=== PATIENT | female | born 1970 | race Caucasian/White ===

== ENCOUNTER 2018-12-27 06:26 | Day surgery (SDC) | payer MEDICARE, MEDICAID, SELFPAY ==
[2018-12-10 11:01] VITALS: BMI 36.6
[2018-12-27] VITALS (13 sets, daily range): BP systolic 78–108; BP diastolic 47–70; PULSE 58–67; RESP 12–16; TEMP 36.2–36.8; O2SAT 97–100; BMI 35.9
--- NOTE | 2018-12-27 | PATH_ITS ---
[facility] Accession Number: [id number] . 01 Material submitted: . uterus - UTERUS AND BILATERAL TUBES . 02 Diagnosis: Uterus And Bilateral Tubes, Hysterectomy, Bilateral Salpingectomy: 1. Benign leiomyomas. 2. Inactive endometrium with focal features suggestive of glandular and stromal breakdown. 3. Fallopian tubes with active inflammation and endosalpingiosis. 4. No evidence of atypia, epithelial dysplasia or malignancy. . I/12/29/2018 . 02 Electronically signed: . Jeanette Palacios MD, Pathologist NPI- [id number] . 01 Gross description: . Received in formalin, labeled uterus and denise tubes, is a uterus in multiple pieces (119 grams, 13.2 x 9.5 x 3.8 cm in aggregate) and two fimbriated fallopian tubes (tube #1: length-5.7 cm, diameter-0.7 cm; tube #2: length-5.2 cm, diameter-0.8 cm). The cervix and ovaries are absent. The specimen cannot be oriented and the endometrium and myometrium cannot be grossly measured. The parenchyma is quiroga and contains multiple solid firm white whorled well-circumscribed homogenous nodules (0.2 x 0.2 x 0.1 cm - 2.7 x 2.4 x 2.4 cm). The serosa is pale quiroga smooth and shiny. The fallopian tubes are surgically bisected and have pale to dark maroon serosa and quiroga dilated lumens containing red-brown watery fluid. Section code: (A1-A4) uterine parenchyma, personal service representative; (A5) fallopian tube #1, personal service representative serial section; (A6) fimbria #1, bivalved, entirely submitted; (A7) fallopian tube #2, personal service representative serial section; (A8) fimbria #2, bivalved, entirely submitted. ([id number]) /[facility] . 02 Pathologist provided ICD-10: D25.9 . 02 CPT . 986975 Performed at: 01 [facility] [address] [id number] MD Obie Gardiner MD Phone: [phone] Performed at: [id number] [place], [place] [id number] MD Jeanette Palacios MD Phone: [phone]
--- NOTE | 2018-12-27 07:17 | PM.PREOP ---
Pre-operative Note Interval Note History & Physical reviewed/Exam performed by Physician: Yes Changes to H&P: No
[2018-12-27] MEDS: LACTATED RINGERS 1,000 ML 100 ML IV ×2 (07:35→11:00)
[2018-12-27] MEDS: CEFAZOLIN 2 GM/100 ML FROZ.PIGGY IV (07:42)
--- NOTE | 2018-12-27 08:23 | SUR.OPER ---
Lithotomy on padded OR bed. [place] Pad Positioner under torso. Head on pillow, arms padded and tucked at sides. Legs secured in padded yellow fins stirrups.
[2018-12-27] MEDS: BUPIVACAINE 0.5% W/ EPI (PF) VIAL 30 ML INJ (08:35)
[2018-12-27] MEDS: ROPIVACAINE 0.2% PF 2 MG/ML 10ML AMP 10 ML INJ (08:37)
[2018-12-27] MEDS: fentaNYL 100 MCG/2 ML INJ 50 MCG IV ×2 (09:52→10:02)
[2018-12-27] MEDS: HYDROCODONE/ACET 5/325 TABLET 1 TAB PO ×2 (10:11→10:39)
--- NOTE | 2018-12-27 10:47 | SUR.PHASEII ---
Assumed care from Emily, og pad scant drop of blood, initially stated cramping pain tolerable, then asked for additional pain med. Medicated by Emily, see MAR.
--- NOTE | 2018-12-27 11:16 | SUR.PHASEII ---
BP low, Drs. Tyler and Jm made aware, pt asymtomatic, hr steady and in th2 60's. Belly is soft and og pad is unchanged from previous check. Friend, sent to pharmacy with prescription.
--- NOTE | 2018-12-27 12:11 | SUR.PHASEII ---
Pt up to BR, steady when up, voided minimal yellow urine, Dr. Tyler aware, bladder scanned for 132mls. Juice water brought to bedside.
--- NOTE | 2018-12-27 12:21 | SUR.PHASEII ---
Ambulated to bathroom x2; first time voided scant amount of clear yellow urine; just voided 400 ml clear yellow urine. Stable on feet, anxious to go home.
--- NOTE | 2018-12-27 12:47 | SUR.PHASEII ---
Pt ready to go, visited BR voided 400 mls. Dressed, small amount bloody drainage to umbilicus area, left when ready and left in stable condition. Per pad with unchanged drainage.
--- NOTE | 2018-12-27 21:03 | PM.GYNOP.1 ---
Operative Date/Time/Diagnoses Date of procedure: 12/27/18 Time of procedure: 21:03 Pre-op diagnosis: Enlarged fibroid uterus Dysmenorrhea Menorrhagia Post-op diagnosis: same Procedure: Procedures Operation Date: 12/27/18 07:45 Actual Procedures Side Surgeon p Laparoscopic Supracervical Hysterectomy w/bilateral salpingectomy Maryuri Tyler MD Indications: Enlarged fibroid uterus Dysmenorrhea Menorrhagia Surgeon: Maryuri Tyler Welding Machine Operator Gas Metal Arc: Dev Houser Anesthesia Type: General Operative Notes Findings: Eleven week size fibroid uterus Tubes status post ligation bilaterally Normal ovaries Normal liver and gallbladder Appendix previously removed Closure Type: primary Specimen(s): portion of left tube, portion of right tube and uterus Applied: catheter (Removed at the end of the case) Estimated blood loss (mL): 100 Blood products transfused: none Procedure in detail: The patient was taken to the operating room where she was placed in the dorsal supine position. After adequate general endotracheal anesthesia was achieved, she was placed in the dorsal lithotomy position, and prepped and draped in the usual sterile fashion. A timeout was performed. A bivalve speculum was placed into the vagina and the anterior lip of the cervix grasped with a single-tooth tenaculum. The cervical os was sequentially dilated until the ZUMI uterine manipulator could pass easily into the endometrial cavity. The single-tooth tenaculum was removed from the anterior lip of the cervix, and the bivalve speculum was removed from the vagina. Attention was then turned to the abdomen where 6 mL of half percent Marcaine with epinephrine were injected in the umbilical fold. A 5 mm incision was made. The Verhees needle was placed into the peritoneal cavity, and its placement confirmed by aspiration and drop test. The Verhees needle was removed. A 5 mm trocar was placed without difficulty. 2 other incisions were made midway between the pubic symphysis and umbilicus after 5 mL of half percent Marcaine with epinephrine were injected. These were 5 mm incisions. Two 5 mm trochars were placed under direct visualization. The right tube was grasped with an atraumatic grasper. Using the plasma kinetic with settings of 40 W the mesosalpinx was cauterized and cut all the way down to the cornua of the uterus. The cornua of the uterus was then grasped with an atraumatic grasper. The utero-ovarian ligaments were cauterized and cut. The round ligament and broad ligament was cauterized and cut with plasma kinetic. Hemostasis was achieved. The bladder flap was created using the plasma kinetic with cautery and cut senior living across. The uterine arteries on the right side were extensively cauterized with plasma kinetic. All of this was repeated on the left side. The remainder of the bladder flap was created using the plasma kinetic, and the bladder taken down off the lower uterine segment and cervix. Using the Endoloop, the cervix was amputated from the uterus 2 cm above the uterosacral ligaments, after the ZUMI uterine manipulator was removed from the uterus. There was some bleeding from the right uterine artery and this was cauterized for hemostasis. A sponge stick was placed into the vagina. 6 mL of half percent Marcaine with epinephrine were injected above the pubic symphysis. A 12 mm trocar was placed. An Endobag was placed through the suprapubic trocar and the uterus placed into the Endobag. The trocar was removed. The Tyler placed into the endobag. The uterus was hand morcellated in approximately 12 pieces. The Endobag was removed from the peritoneal cavity. The pelvis was copiously irrigated with warm normal saline. No bleeding was noted. The instruments were removed from the abdomen. The CO2 was allowed to escape. The suprapubic incision was closed on the fascia with 0 Vicryl. All of the incisions were closed with 4-0 undyed Vicryl in a subcuticular fashion. The moistened sponge stick was removed from the vagina. Sponge, lap, and instrument counts were correct x-2. The patient tolerated the procedure well, was taken to PACU in stable condition. Complications: none Post-operative Condition: stable Disposition: PACU Plan for aftercare: Home after recovery
== END 2018-12-27 12:45 | disposition home or self-care (01) ==
LOC: OR 06:34 → AC 09:57 → OR 12:11
PROVIDERS: Visit Provider Obstetrics & Gynecology
PROC: 0UT94ZL Resection of Uterus, Supracervical, Percutaneous Endoscopic Approach (ICD-10-PCS; CPT 58542; principal; 2018-12-27 07:45)
DX: D25.9 Leiomyoma of uterus, unspecified (principal); N92.0 Excessive and frequent menstruation with regular cycle; N94.6 Dysmenorrhea, unspecified; N70.91 Salpingitis, unspecified; N94.89 Other specified conditions associated with female genital organs and menstrual cycle; I10 Essential (primary) hypertension; E03.9 Hypothyroidism, unspecified; J45.909 Unspecified asthma, uncomplicated; F41.9 Anxiety disorder, unspecified; F32.9 Major depressive disorder, single episode, unspecified
CPT/HCPCS: 58542; 88307; J0690; J2250; J2795; J3010

== ENCOUNTER → 2019-12-02 15:54 | Outpatient (CLI) | payer MEDICARE, MEDICAID, SELFPAY ==
[2019-12-04 07:47] LABS: COVID19 Sendout Not Detected (Not Detect)
== END ==
PROVIDERS: PCP Family Medicine; Visit Provider Physician Assistant
DX: Z01.818 Encounter for other preprocedural examination (principal)
CPT/HCPCS: 87635

== ENCOUNTER 2019-12-05 06:33 | Day surgery (SDC) | payer MEDICARE, MEDICAID, SELFPAY ==
[2019-12-01 08:40] VITALS: BMI 35.9
[2019-12-05] VITALS (17 sets, daily range): BP systolic 108–131; BP diastolic 56–85; PULSE 88–114; RESP 11–19; TEMP 36.1–37.2; O2SAT 94–99; BMI 35.2
--- NOTE | 2019-12-05 | DI.RAD.S_ITS ---
PROCEDURE: XR CERVICAL SPINE 2V OR 3V INDICATIONS: C5-6, C6-7 ACDF TECHNIQUE: 2 view(s) of the cervical spine were acquired. COMPARISON: None. FINDINGS: Bones: Intraoperative images acquired using C-arm apparatus demonstrate C5-C7 fixation hardware. Fixation hardware is intact. No lucencies are identified at the bone hardware interface. Soft tissues: No prevertebral soft tissue swelling. IMPRESSION: Expected postsurgical change for C5-C7 ACDF. Dictated by: Zhanna Ahmadi MD, PhD on 12/05/2019 at 13:13 Approved by: Zhanna Ahmadi MD, PhD on 12/05/2019 at 13:14
--- NOTE | 2019-12-05 07:11 | SUR.PREOP ---
pt reports has chronic numbness and tingling in bilateral arms down into hands.
[2019-12-05] MEDS: LACTATED RINGERS 1,000 ML 42 ML IV ×2 (07:30→10:14)
--- NOTE | 2019-12-05 08:07 | PM.HP.1 ---
History of Present Illness History of Present Illness Date Patient Seen: 12/05/19 Time Patient Seen: 07:47 Date of Onset of Symptoms: 06/08/18 Chief complaint: neck pain, arm pain Narrative: Ms. Gary is a 49 yo F with hx of chronic neck pain and worsening arm pain and hand numbness. She failed multiple conservative management and worsening symptoms. I discussed treatment options with risks and benefits, patient elected to proceed with surgery treatment. 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) Chronic skin ulcer (Acute) Depression (Acute) Dysmenorrhea (Acute) Fibroids (Acute) Fractures (Resolved) Genital warts (Resolved) Heavy menstrual period (Resolved) HTN (hypertension) (Acute) Human papilloma virus (Inactive) Hypothyroidism (Acute) Irregular menstrual cycle (Resolved) Ovarian cyst (Resolved) Painful menstrual periods (Resolved) Substance abuse (Acute) Surgical History (Updated 12/01/19 @ 09:56 by Kelli Ponce RN) Anesthesia (Resolved) History of appendectomy (Resolved ~1996) History of lumbar spinal fusion (Acute 2017) History of lumbar surgery (Acute ~02/27/17) History of tubal ligation (Resolved ~1995) S/P laparoscopic supracervical hysterectomy (Resolved ~12/27/18) Family & Social History Family History (Updated 03/06/19 @ 20:16 by Radha Guerra) Father No problems noted. Mother COPD (chronic obstructive pulmonary disease) Atrial fibrillation Cellulitis Hypertension Uterine cancer Sister Congestive heart failure Cancer History of heart disease Hypertension Leukemia Ovarian cancer Grandmother Stomach cancer Ovarian cancer Social History: household members none Prior Living Arrangements RV Safety & Behavioral: Feels Safe in Current Yes Environment Been Physically Hurt or No Threatened By a Person Suicidal Ideation Description None Suicide Plan Description No Plan Tobacco & Substance use: Tobacco type cigarettes Smoking Status Former smoker alcohol intake current alcohol intake frequency holiday/special occasion Substance Use Type marijuana Meds Home Medications and Allergies Home Medications Medication Instructions Recorded Confirmed Type albuterol sulfate 90 mcg/actuation 2 puff INHALATION Q6H PRN 11/10/18 12/05/19 History aerosol inhaler cyclobenzaprine 5 mg tablet 5 mg PO TID PRN 11/10/18 12/01/19 History hydrocodone 5 mg-acetaminophen 325 1 tab PO Q4-6H PRN 11/10/18 12/01/19 History mg tablet ibuprofen 800 mg tablet 800 mg PO TID-QID PRN 11/10/18 12/05/19 History levothyroxine 137 mcg capsule 112 mcg PO DAILY 11/10/18 12/05/19 History nifedipine 30 mg PO DAILY 12/01/19 12/05/19 History Allergies Allergy/AdvReac Type Severity Reaction Status Date / Time morphine AdvReac itching Verified 12/05/19 06:47 Exam Vital Signs (past 8 hours): - 12/05/19 06:58 Temperature 97.2 F L Pulse Rate 88 Respiratory Rate 16 Blood Pressure 117/76 Pulse Oximetry 97 Oxygen Delivery Method Room Air Neck Other: Limited ROM due to stiffness and pain. Neuro Other: Decreased left biceps and triceps strength at 4/5, decreased sensiblity to left C6, C7 dermatome, + Spurlingts to LUE. Objective Imaging MRI c-spine: My impression: spondylosis and DDD with central and foramen stenosis left worse than right at C5-6, C6-7 Assessment & Plan Assessment & Plan narrative: 49 yo F with left arm cervical radiculopathy failed conservative managment. I discussed treatment options with risks and benefits of treatment options. Patient elected to proceed with surgery. Additional risks for COVID-19 exposure was discussed, patient understands and would like to proceed with surgery as planned. Patient has been COVID-19 tested and has negative lab results. COVID-19 COVID-19 status: Negative Result date/Date tested (Pos, Neg/Pending): 12/02/19
[2019-12-05] MEDS: CEFAZOLIN 2 GM/100 ML FROZ.PIGGY IV ×2 (08:08→15:45)
--- NOTE | 2019-12-05 08:37 | SUR.OPER ---
Supine, head on gel donut. Arms padded with gel pads, tucked at sides, towel roll under shoulders. Safety belt at thigh. Legs uncrossed. Tape from shoulders to end of bed for distraction. Tape across lower legs over blankets.
--- NOTE | 2019-12-05 10:44 | PM.OP.1 ---
Operative Date/Time/Diagnoses Date of procedure: 12/05/19 Time of procedure: 08:08 Pre-op diagnosis: 1. C5-6, C6-7 spinal stenosis 2. C5-6, C6-7 spondylosis with radiculopathy Post-op diagnosis: same Procedure & Clinicians Procedure: 1. C5-6 C6-7 anterior cervical diskectomy and fusion 2. C5-6 C6-7 anterior interbody cage placement 3. C5-6 C6-7 anterior instrumentation with plate and screw placement in C5-C6 and C7 vertebrae 4. Utilization of microsurgical technique and operating microscope Same procedure as scheduled: Yes Indications: Patient has been having chronic neck pain and worsening cervical radiculopathy. Patient failed multiple conservative management with worsening pain weakness and numbness in her upper extremity. Patient has been having difficulty performing activity of daily living. After discussing risks benefits of treatment options, patient elected proceed with surgery. Surgeon: Caro Bender Robotic Machine Tender Production: Mae Queen Click Yes if Unassisted: No Anesthesia Type: General Operative Notes Closure Type: primary Prosthetic devices, grafts, tissues, transplants, or devices: Globus extend plate, PEEK cages Estimated Blood Loss (mL): 10 Blood products transfused: none Procedure in detail: Patient was seen in the preoperative area. Risks and benefits of the surgery was discussed with the patient. Operative consent was obtained and placed in the chart. Patient was then taken to the operative room. Prophylactic antibiotic was given less than 0.5 hr prior to skin incision. General anesthesia was administered. Patient was placed into a supine position on her radiolucent table. Bilateral shoulders were taped down to allow proper C-arm imaging. Anterior cervical area was prepped and draped in a sterile fashion. Time-out was performed at this time. Using lateral C-arm imaging, the level between C5 and C7 was identified and marked on patient's neck. A oblique incision from midline towards medial border of sternocleidomastoid muscle was made. The platysma muscle was incised in line with skin incision. Metzenbaum scissor was used to develop the plane between the medial border of sternocleidomastoid d and the strap muscles medially. The carotid sheath and its contents were identified and protected behind the hand-held retractor during the entire case. The plane between the carotid sheath and strap muscles was developed with Metzenbaum scissors. Dissection was made down to the level of the anterior cervical fascia. Longus colli muscle was incised on the anterior aspect of vertebral bodies bilaterally from C5-C7. Spinal needle was placed into the C5-6 disc space and confirmed with lateral C-arm imaging. Using microsurgical technique and operative microscope, anterior cervical diskectomy was performed at C5-6 and C6-7 level. This was done by removing the disc material, removing the anterior and posterior osteophytes posterior longitudinal ligaments along with performing bilateral foraminotomies at both levels. Patient was found to have severe central and foraminal stenosis at both levels. Patient's stenosis was fully decompressed after decompression was completed. After the diskectomy was completed, 2 anterior interbody cages were obtained. The cages were packed with DBM bone grafting material. One cage each along with the bone grafting material was then packed into the interbody spaces from C5-C7 with one cage into each interbody level. Patient was found have significant amount of anterior osteophytes at all 3 levels. Leksell rongeur and Kerrison rongeur was used to remove the anterior osteophytes. After the cages were placed, the anterior cervical plate was stabilized to the C5-C7 vertebrae using 2 screws at each each level. Total 6 screws were placed. After confirming placement of the hardware with AP and lateral C-arm imaging, the screws were locked into the plate using the locking mechanism and torque limiting screwdriver. After the hardware was placed and confirmed with AP and lateral C-arm imaging, the wound was irrigated with sterile normal saline. The platysma muscle and the subcutaneous tissue was closed with 2-0 Vicryl. The skin was closed with 4-0Monocryl and Steri-Strips. Patient tolerated the procedure well. Patient was transferred recovery room in stable condition. There were no complications. Complications: none Post-operative Condition: stable Disposition: PACU Plan for aftercare: Admit to inpatient hospital
[2019-12-05] MEDS: OXYCODONE/ACETAMINOPHEN 5/325 TABLET 1 TAB PO ×2 (11:24→12:09)
--- NOTE | 2019-12-05 11:28 | SUR.PHASEI ---
Report given to Damari
[2019-12-05] MEDS: fentaNYL 100 MCG/2 ML INJ IV (11:40)
--- NOTE | 2019-12-05 12:30 | SUR.PHASEI ---
Pt to transfer to room 229; report given to RAZA Padilla prior to transfer. Last vitals signs stable with pain controlled with medications; see flowsheet documentation for details. RAZA Lal took pt to room 229 via bed with all belongings. Upon arrival to room 229 pt up to bathroom with assistance from Noah, acute care RN. RAZA Zamora to assume care of pt at this time.
--- NOTE | 2019-12-05 13:52 | PC.ADMIT ---
Addendum entered by Noah Lanza R.N. 12/05/19 13:54: Rec'd pt with no admission orders. Called to PACU lead and reported lack of orders. DRAFTER CHIEF DESIGN states she spoke with Dr. Bender and he will be placing orders within 30-45 minutes. This was ~1245. Following post op protocol for VS and awaiting new orders. Original Note: [address] Admission Note: The patient,Yolis Gary,49 y/o, was given written information regarding hospital policies, unit procedures and contact persons. Patient's smoking status: Former smoker. Vital Signs - 8 hr 12/05/19 06:58 12/05/19 10:57 12/05/19 11:02 Temperature 97.2 F L 97.6 F Pulse Rate 88 111 H 113 H Respiratory Rate 16 13 Blood Pressure 117/76 125/78 117/83 Pulse Oximetry 97 96 95 12/05/19 11:07 12/05/19 11:12 12/05/19 11:27 Temperature Pulse Rate 114 H 108 H 107 H Respiratory Rate 16 13 11 L Blood Pressure 127/60 118/78 111/83 Pulse Oximetry 95 95 98 12/05/19 11:42 12/05/19 11:57 12/05/19 12:11 Temperature 98.7 F Pulse Rate 99 H 104 H Respiratory Rate 15 16 Blood Pressure 122/85 110/73 Pulse Oximetry 98 96 12/05/19 12:12 12/05/19 12:38 12/05/19 12:55 Temperature 98.8 F 98.4 F Pulse Rate 103 H 101 H 102 H Respiratory Rate 11 L 16 17 Blood Pressure 131/70 115/71 116/56 L Pulse Oximetry 96 94 94 12/05/19 13:00 12/05/19 13:30 Temperature 98.8 F 99 F Pulse Rate 103 H 101 H Respiratory Rate 16 15 Blood Pressure 108/58 L 110/61 Pulse Oximetry 95 94 Pt admitted to rm 229 from pacu at 1225. Pt is AO x3 and making her needs known with clear speech. She ambulates to the BR with SBA/CGA. Gait is mildly unsteady which pt states is her baseline. She is able to self correct. Reports baseline left side weakness and left hand numbness. Admission assessment completed. Oriented to room/routine, fall risk, use of call light, and instructed to wait for assistance before getting OOB. She verbalizes understanding.
[2019-12-05] MEDS: SODIUM CHLORIDE 0.9% 1,000 ML 100 ML IV (14:37)
[2019-12-05] MEDS: ACETAMINOPHEN 325 MG TABLET 650 MG PO (14:40)
[2019-12-05] MEDS: OXYCODONE IR 10 MG TABLET PO ×2 (15:44→19:51)
[2019-12-05] MEDS: hydrOXYzine pamoate 25 MG CAPSULE PO ×2 (16:45→20:50)
--- NOTE | 2019-12-05 18:17 | PT.IIE ---
Current Diagnoses Other spondylosis with radiculopathy, cervical region (12/05/19) Spinal stenosis, cervical region (12/05/19) Surgery Performed Operation Date: 12/05/19 07:45 Actual Procedures p c5-6, c6-7 ACDF w/ anterior instrumentation - Caro Bender MD Surgical History (Last Updated 12/01/19 @ 09:56 by Kelli Ponce RN) Anesthesia (Resolved) History of appendectomy (Resolved ~1996) History of lumbar spinal fusion (Acute 2016) History of lumbar surgery (Acute ~02/27/17) History of tubal ligation (Resolved ~1995) S/P laparoscopic supracervical hysterectomy (Resolved ~12/27/18) Medical History (Last Updated 03/06/19 @ 20:11 by Radha Guerar) Abnormal Pap smear of cervix (Resolved) Anemia (Inactive) Anxiety (Acute) Arthritis (Acute) Asthma (Acute) Chicken pox (Resolved) Chronic low back pain with bilateral sciatica (Acute) Chronic skin ulcer (Acute) Depression (Acute) Dysmenorrhea (Acute) Fibroids (Acute) Fractures (Resolved) Genital warts (Resolved) Heavy menstrual period (Resolved) HTN (hypertension) (Acute) Human papilloma virus (Inactive) Hypothyroidism (Acute) Irregular menstrual cycle (Resolved) Ovarian cyst (Resolved) Painful menstrual periods (Resolved) Substance abuse (Acute) Physical Therapy Inpatient Evaluation/Re-Eval M1 PT/OT-IP Prior Functional Status Start: 12/05/19 15:04 Freq: NEEDED Status: Active Protocol: Document 12/05/19 17:58 AW (Rec: 12/05/19 18:17 AW [id number]) Medical Review Prior Functional Status Medical History Reviewed Yes Diet/Fluid Consistency Regular Communication WNL Mobility and Gait Independent without AD up to 2 miles walking Activities of Daily Living and IADL's Independent but with increased difficulty Social History Household Members none Living Arrangements RV Number of Floors (Floors) One Floor Number of Stairs To Enter/Railing? 3 MG with grab bar at top step Home Environment High Toilet,Tub/Shower Home Equipment Hand Held Shower Employment Status Unemployed Additional Social History Comment Pt lives alone. Her boyfriend, Elías, and her daughter will be able to assist prn at discharge but there is no plan for anyone to stay with her. M2 PT-IP Current Condition Start: 12/05/19 15:04 Freq: NEEDED Status: Active Protocol: Document 12/05/19 17:58 AW (Rec: 12/05/19 18:17 AW [id number]) Physical Therapy Current Condition Current Condition Evaluation Date 12/05/19 Treatment Diagnosis s/p C5-6 C6-7 ACDF; impaired mobility and ADL's Precautions Cervical Spine Precautions Soft Collar for Comfort,No Heavy Lifting,Log Roll M3 PT-IP Subjective Start: 12/05/19 15:04 Freq: NEEDED Status: Active Protocol: Document 12/05/19 17:58 AW (Rec: 12/05/19 18:17 AW [id number]) Subjective Physical Therapy Visit Type Type Initial Evaluation Visit Start Time 17:36 Visit Stop Time 17:56 Total Visit Minutes 20 Physical Therapy Visit Comments Patient Comments It hurts to swallow but I can move ok. Patient Goals Pt plans to return home with intermittent assist from her boyfreind and daughter Therapy Pain Assessment Pain When Pain Assessed At Rest Pain Present Pain Present Pain Reported Location Neck Intensity 8 Scale Used Numeric (0 - 10) Pain Management Techniques Apply Cold,Timing of Activity with Medications M4 PT-IP Mobility and Gait Start: 12/05/19 15:04 Freq: NEEDED Status: Active Protocol: Document 12/05/19 17:58 AW (Rec: 12/05/19 18:17 AW [id number]) PT-Bed Mobility Assessment Rolling Type of Rolling Log Rolling,Roll to Right Level of Assist Standby Assistance Supine to Sit Supine to Sit Standby Assistance Scooting Scooting to Edge of Bed Standby Assistance PT-Transfer Assessment Sit to and From Stand Sit to and from Stand Standby Assistance Equipment Transfer Assistive Device Gait Belt Transfers Transfer Destination Bed,Toilet Transfer Technique pt ambulated with IV pole for support Transfer Ability Level of Assist Standby Assistance,Use of Upper Extremities Comments Mobility Comments Pt was sitting up in bed upon PT arrival, eating sherbet and drinking water with some complaint of pain. She completed log roll to her right side and sidelying to sit from flattened bed SBA. She was able to sit EOB without UE support. She stood without support and then used the IV pole as an AD to ambulate to the toilet where she transferred to and from SBA. She then ambulated with IV pole support to the sink for handwashing and for instruction on doffing/donning soft collar. Pt then requested return to bed where she was positioned with call light and all needs within reach, bed alarm armed for safety. Gait Assessment Gait Gait Assistance Required: Standby Assistance Distance (Feet) 30 Assistive Devices Assistive Device Gait Belt Orthotic/Prosthetic Devices or Brace: Yes Gait Deviations General Gait Pattern Antalgic,Decreased Stride Length,Decreased Feet Clearance Factors Limiting Gait Function Factors Limiting Gait Function Decreased Activity Tolerance, Decreased Strength,Pain,Poor Balance Comments Gait Comments Pt ambulated around the room with IV pole for support SBA. She declined gait assessment without IV pole. Will assess at AM session. Stair Climbing Assessment Comments Stair Climbing Comments Not assessed. PT-Balance Assessment Sitting Balance and Reactions Static Sitting Balance Ability Good Dynamic Sitting Balance Ability Good Standing Balance and Reactions Static Standing Balance Ability Good Dynamic Standing Balance Ability Good Device Used IV pole M5 PT-IP Objective Assessments Start: 12/05/19 15:04 Freq: NEEDED Status: Active Protocol: Document 12/05/19 17:58 AW (Rec: 12/05/19 18:17 AW [id number]) Orientation Orientation/Cognition Level of Alertness Alert Orientation Name,Month,Day of Week,Place, Situation Language Function Ability No Deficits Noted Safety Awareness Understands Safety Issues Memory Description No Deficits Noted Gross Range of Motion Lower Extremity ROM Assessment Within Functional Limits Strength Upper Extremity Strength Assessment Within Functional Limits Lower Extremity Strength Assessment Within Functional Limits Comments Strength Comments BUE grossly 4+/5 Coordination Assessment Gross Coordination Gross Coordination WNL Sensation Assessment Sensation Gross Sensation Left UE Impaired Light Touch Impaired Comments Sensation Comments Pt with dull light touch sensation LUE Muscle Tone Muscle Tone WNL Yes M6 PT-IP Treatment Start: 12/05/19 15:04 Freq: NEEDED Status: Active Protocol: Document 12/05/19 17:58 AW (Rec: 12/05/19 18:17 AW [id number]) Physical Therapy Treatment Education Education Provided Precautions,Weight Bearing Status,Post-Op Packet,Safety Brace Education [place],Patient Other Treatments Other Treatment Performed Provided education on role of PT, plan of care, post-op precautions, and soft collar for comfort. Pt was able to don and doff the soft collar independently. Also provided education and handout regarding safe swallow and potential voice changes following cervical surgery. M7 PT-IP Assessment and Plan Start: 12/05/19 15:04 Freq: NEEDED Status: Active Protocol: Document 12/05/19 17:58 AW (Rec: 12/05/19 18:17 AW [id number]) PT Summary Assessment and Plan Potential Rehabilitation Potential Good Status of Condition at Evaluation Evolving Summary Impairments Pain,ROM,Strength,Balance, Sensation,Bed Mobility, Transfers,Gait Assessment Summary Yolis is a 49 yo woman seen for PT evaluation on POD0 following C5-7 ACDF. She has history of chronic LBP and lumbar surgery. She is functionally independent at baseline and lives alone. On evaluation, she required SBA for ambulation in the room with IV pole support. She had poor pain control but moved well. Pt will benefit from at least one additional acute PT session to reinforce bed mobility techniques, to assess gait without AD, and to assess safety on stairs. Once medically cleared, pt will be safe to discharge home with assistance and outpatient PT Goals Bed Mobility Goal Independent Transfer Goal Independent Gait Goal Independent Gait Distance 200 Other Goals - up/down 3 steps with unilateral rail SBA Days to Meet Goals 2 Frequency of Treatment Frequency Of Treatment Twice a Day Treatment Plan Physical Therapy Treatment Plan Bed Mobility Training,Transfer Training,Gait Training, Therapeutic Exercise,Balance Retraining,Post Op Education, Discharge Planning,Hot or Cold Pack Recommendations To Nursing Amount of Assist Needed Standby Assistance Discharge Recommendations PT Discharge Recommendations Home with Assistance, Outpatient PT Transportation Needs at Discharge Private Vehicle
[2019-12-05] MEDS: DOCUSATE 100 MG CAPSULE PO (20:51)
[2019-12-05] MEDS: SENNOSIDES 8.6 MG TABLET 17.2 MG PO (20:51)
[2019-12-05] MEDS: HYDROMORPHONE 0.5 MG INJ IV (22:16)
[2019-12-06 00:20] VITALS: BP 117/65; PULSE 67; RESP 16; TEMP 36.3; O2SAT 97
[2019-12-06] MEDS: CEFAZOLIN 2 GM/100 ML FROZ.PIGGY IV (00:28)
[2019-12-06] MEDS: OXYCODONE IR 10 MG TABLET PO ×3 (00:59→10:42)
[2019-12-06] MEDS: hydrOXYzine pamoate 25 MG CAPSULE PO ×2 (00:59→07:39)
[2019-12-06 05:01] VITALS: BP 128/66; PULSE 72; RESP 18; TEMP 36.6; O2SAT 99
[2019-12-06] MEDS: LEVOTHYROXINE 112 MCG TABLET PO (06:39)
[2019-12-06] MEDS: SODIUM CHLORIDE 0.9% FLUSH 10 ML IV (07:37)
[2019-12-06] MEDS: DOCUSATE 100 MG CAPSULE PO (07:38)
[2019-12-06] MEDS: ACETAMINOPHEN 325 MG TABLET 650 MG PO (07:39)
[2019-12-06 07:40] VITALS: BP 108/63; PULSE 72; RESP 18; O2SAT 99
[2019-12-06] MEDS: NIFEdipine 30 MG TAB ER PO (07:40)
[2019-12-06 08:00] VITALS: BP 108/63; PULSE 67; RESP 16; TEMP 36.1; O2SAT 99
--- NOTE | 2019-12-06 08:48 | PM.PN.1 ---
Exam Vital Signs (past 8 hours): - 12/06/19 05:01 12/06/19 07:40 12/06/19 08:00 Temperature 97.8 F 97.0 F L Pulse Rate 72 72 67 Respiratory Rate 18 18 16 Blood Pressure 128/66 108/63 108/63 Pulse Oximetry 99 99 99 Oxygen Delivery Method Room Air,Nasal Cannula Oxygen Flow Rate 0 Objective Labs Labs: Laboratory Results - last 24 hr 12/05/19 13:00 Nasal Screen MRSA (PCR) Negative for mrsa Assessment & Plan Assessment & Plan narrative: POD#1 s/p ACDF C5-7. Patient is doing well. Dressing clean dry intact. Normal voice and swallowing well with mild soreness, able to eat w/o issues. Medication works well for pain management. Neuro intact on exam. Will discharge today to home Quality VTE Deep Vein Thrombosis/Pulmonary Embolism Present on Admission: No
--- NOTE | 2019-12-06 08:50 | OT.IP.EVAL ---
Current Diagnoses Other spondylosis with radiculopathy, cervical region (12/05/19) Spinal stenosis, cervical region (12/05/19) Surgery Performed Operation Date: 12/05/19 07:45 Actual Procedures p c5-6, c6-7 ACDF w/ anterior instrumentation - Caro Bender MD Past Medical History (Last Updated 03/06/19 @ 20:11 by Radha Guerra) Abnormal Pap smear of cervix (Resolved) Anemia (Inactive) Anxiety (Acute) Arthritis (Acute) Asthma (Acute) Chicken pox (Resolved) Chronic low back pain with bilateral sciatica (Acute) Chronic skin ulcer (Acute) Depression (Acute) Dysmenorrhea (Acute) Fibroids (Acute) Fractures (Resolved) Genital warts (Resolved) Heavy menstrual period (Resolved) HTN (hypertension) (Acute) Human papilloma virus (Inactive) Hypothyroidism (Acute) Irregular menstrual cycle (Resolved) Ovarian cyst (Resolved) Painful menstrual periods (Resolved) Substance abuse (Acute) Surgical History (Last Updated 12/01/19 @ 09:56 by Kelli Ponce RN) Anesthesia (Resolved) History of appendectomy (Resolved ~1996) History of lumbar spinal fusion (Acute 2016) History of lumbar surgery (Acute ~02/27/17) History of tubal ligation (Resolved ~1995) S/P laparoscopic supracervical hysterectomy (Resolved ~12/27/18) Occupational Therapy Inpatient Evaluation/Re-Eval M1 PT/OT-IP Prior Functional Status Start: 12/06/19 11:48 Freq: NEEDED Status: Active Protocol: Document 12/06/19 11:49 [facility] (Rec: 12/06/19 12:02 [facility] [id number]) Medical Review Prior Functional Status Medical History Reviewed Yes Diet/Fluid Consistency Regular Communication WNL Mobility and Gait Independent without AD up to 2 miles walking Activities of Daily Living and IADL's Independent but with increased difficulty Social History Household Members none Living Arrangements RV Number of Floors (Floors) One Floor Number of Stairs To Enter/Railing? 3 MG with grab bar at top step Home Environment High Toilet,Tub/Shower Home Equipment Hand Held Shower Employment Status Unemployed Additional Social History Comment Pt lives alone. Her boyfriend, Elías, and her daughter will be able to assist prn at discharge but there is no plan for anyone to stay with her. M2 OT-IP Current Condition Start: 12/06/19 11:48 Freq: Status: Active Protocol: Document 12/06/19 11:49 [facility] (Rec: 12/06/19 12:02 [facility] [id number]) Occupational Therapy Current Condition Current Condition Evaluation Date 12/06/19 Treatment Diagnosis Cervical radiculopathy,S/p C5- 7 ACDF Diagnosis Onset Date 12/06/19 Post Operative Precautions Cervical Spine Precautions Soft Collar for Comfort,No Heavy Lifting,Log Roll M3 OT- IP Subjective and Pain Start: 12/06/19 11:48 Freq: Status: Active Protocol: Document 12/06/19 11:49 [facility] (Rec: 12/06/19 12:02 [facility] [id number]) OT- Subjective Occupational Therapy Visit Type Type Initial Evaluation Visit Start Time 08:50 Visit Stop Time 09:14 Total Visit Minutes 24 Occupational Therapy Visit Comments Patient Comments Pt agreed to get up for OT eval. Patient/Caregiver Goals To go home. OT Pain Assessment Pain When Pain Assessed At Rest Pain Present Pain Present Pain Reported Location Neck Intensity 4 M4 OT- IP ADL's Start: 12/06/19 11:48 Freq: Status: Active Protocol: Document 12/06/19 11:49 [facility] (Rec: 12/06/19 12:02 [facility] [id number]) OT [id number] Comments OT Self-Feeding Comments Went over information for swallowing needs, pt to eat while upright, chew food thoroughly and cold food can be helpful. OT ADL-Grooming General Evaluation Grooming Ability Standby Assistance Comments OT Grooming Comments Educated pt to spit into a cup or bend at her hips to spit into the sink. OT ADL-Oral Care General Eval Oral Care Ability Independent OT ADL-Dressing General Eval Upper Body Dressing Ability Independent Lower Body Dressing Ability Standby Assistance Comments OT Dressing Comments Initial vc to sit down for LB dressing needs. Educated pt how to karin/doff soft collar. Pt able to demonstrate good safety and understanding for soft collar needs. OT ADL-Toileting General Evaluation Toileting Ability Independent OT ADL-Bathing Comments OT Bathing Comments Pt not wanting to shower, encouraged pt to have her daughter there initially. Pt states shower too small for a shower chair. M5 OT- IP IADL's Start: 12/06/19 11:48 Freq: Status: Active Protocol: Document 12/06/19 11:49 [facility] (Rec: 12/06/19 12:02 [facility] [id number]) OT-Instrumental Activities of Daily Living Home Safety Awareness Awareness of Need for Assistance at Home Good Awareness Ability to Problem Solve Emergency Able to Problem Solve Situations Home Safety Comments Pt states her daughter lives next door and will be able to assist for IADl needs. Medication Management Medication Management No Deficits Identified Money Management Money Management No Deficits Identified Meal Preparation Meal Preparation Comments Suggested for pt's daugther to assist as needed, have all items close by and within reach. Collections Professional Collections Professional Caregiver Provides Assist M6 OT- IP Functional Cognition Start: 12/06/19 11:48 Freq: Status: Active Protocol: Document 12/06/19 11:49 [facility] (Rec: 12/06/19 12:02 [facility] [id number]) Cognitive Factors Limiting Selfcare Function Cognitive Ability Level of Alertness Alert Patient Orientation Name,Age,Birthday,Month,Date, Year,Day of Week,Place, Situation Attention Span Ability Capable of Focused Attention, Capable of Sustained Attention Ability to Follow Commands Able to Follow Multi-Step Commands Memory Description No Deficits Noted Safety Awareness Underestimates Need for Assistance Problem Solving Ability No deficits Noted Cognitive Comments Cognitive Assessment Comments pt just a little impulsive and needing cues to slow down, otherwise appears at baseline level for her cognition. OT- Vision and Hearing OT- Hearing Assessment OT- Hearing Assessment WFL OT- Vision Assessment Visual Acuity WFL M7 OT- IP Mobility and Balance Start: 12/06/19 11:48 Freq: Status: Active Protocol: Document 12/06/19 11:49 [facility] (Rec: 12/06/19 12:02 [facility] [id number]) OT- Bed Mobility Assessment Rolling Type of Rolling Roll to Right Level of Assistance Independent Supine to Sit Supine to Sit Assist Independent Sit to Supine Sit to Supine Assist Independent OT-Transfer Assessment Sit to and From Stand Sit to and from Stand Independent Transfers Transfer Ability Standby Assistance Technique Transfer Destination Bed,Chair,Toilet Transfer Technique Stand Step Pivot Comments Mobility Comments Distant SBA without a device. OT- Balance Assessment Sitting Balance and Reactions Static Sitting Balance Ability Normal Dynamic Sitting Balance Ability Good Standing Balance and Reactions Static Standing Balance Ability Good Dynamic Standing Balance Ability Good M8 OT- IP Objective Assessments Start: 12/06/19 11:48 Freq: Status: Active Protocol: Document 12/06/19 11:49 [facility] (Rec: 12/06/19 12:02 [facility] [id number]) OT Gross Range of Motion Upper Extremity Range of Motion Assessment Within Functional Limits OT Strength Upper Extremity Strength Assessment Within Functional Limits OT-Muscle Tone Assessment Muscle Tone WNL Yes M9 OT- IP Assessment and Plan Start: 12/06/19 11:48 Freq: Status: Active Protocol: Document 12/06/19 11:49 [facility] (Rec: 12/06/19 12:02 [facility] [id number]) OT Summary Assessment and Plan Potential Rehabilitation Potential Excellent Analytic Complexity at Evaluation Low Summary OT Impairments Functional Mobility,Bathing Progress Towards Goals Progressing Toward Goals Assessment Summary Pt low complexity and main barrier are pt needing to slow down and be careful not to twist her neck. Pt has a supportive family that will be able to assist her as needed and lives next door. Pt looking to go home today. Goals Dressing Goal Independent Toileting Goal Independent Bathing Goal Independent Toilet Transfer Goal Independent Shower Transfer Goal Independent Patient/Caregiver Education Goal Demonstrate Post-Op Precautions Days to Meet Goals 1 Frequency of Treatment Frequency Of Treatment Once a Day Treatment Plan OT Treatment Plan Patient/Family Education Other Treatment Recommendations and Next Shower if stil here. Treatment Focus Discharge Recommendations OT Discharge Recommendations Home with Assistance Transportation Needs at Discharge Private Vehicle
--- NOTE | 2019-12-06 10:13 | PT.IPTN ---
Current Diagnoses Other spondylosis with radiculopathy, cervical region (12/05/19) Spinal stenosis, cervical region (12/05/19) Surgery Performed Operation Date: 12/05/19 07:45 Actual Procedures p c5-6, c6-7 ACDF w/ anterior instrumentation - Caro Bender MD Physical Therapy Treatment Note M2 PT-IP Current Condition Start: 12/05/19 15:04 Freq: NEEDED Status: Discharge Protocol: Document 12/05/19 17:58 AW (Rec: 12/05/19 18:17 AW [id number]) Physical Therapy Current Condition Current Condition Evaluation Date 12/05/19 Treatment Diagnosis s/p C5-6 C6-7 ACDF; impaired mobility and ADL's Precautions Cervical Spine Precautions Soft Collar for Comfort,No Heavy Lifting,Log Roll M3 PT-IP Subjective Start: 12/05/19 15:04 Freq: NEEDED Status: Discharge Protocol: Document 12/06/19 09:47 [facility] (Rec: 12/06/19 12:46 [facility] [id number]) Subjective Physical Therapy Visit Type Type Treatment Note Visit Start Time 09:47 Visit Stop Time 10:13 Total Visit Minutes 26 Physical Therapy Visit Comments Patient Comments Pt willing to work with therapy. Therapy Pain Assessment Pain When Pain Assessed At Rest Pain Present Pain Present Pain Reported Location Neck Intensity 4 Scale Used Numeric (0 - 10) Pain Management Techniques Apply Cold,Timing of Activity with Medications M4 PT-IP Mobility and Gait Start: 12/05/19 15:04 Freq: NEEDED Status: Discharge Protocol: Document 12/06/19 09:47 [facility] (Rec: 12/06/19 12:46 [facility] [id number]) PT-Bed Mobility Assessment Rolling Type of Rolling Log Rolling,Roll to Right Level of Assist Independent Supine to Sit Supine to Sit Independent Sit to Supine Sit to Supine Independent Scooting Scooting to Edge of Bed Standby Assistance PT-Transfer Assessment Sit to and From Stand Sit to and from Stand Standby Assistance Equipment Transfer Assistive Device Gait Belt Transfers Transfer Destination Bed,Toilet,Wheelchair Transfer Technique walked Transfer Ability Level of Assist Standby Assistance,Use of Upper Extremities Comments Mobility Comments Pt is independent with LR, supine<>sit and scooting to EOB, Pt required SBA for sit<> stand from bed and WC. Pt ambulated to BR SBA and washed hands at sink with good standing balance SBA. Pt ambulated up one set of stairs with rail SBA. Pt then ambulated ~300ft in [place]. Pt ambulated around room collecting items to pack. Pt left in bed with all needs within reach. RN informed of pt mobility. Gait Assessment Gait Gait Assistance Required: Standby Assistance Distance (Feet) 300 Assistive Devices Assistive Device Gait Belt Gait Deviations General Gait Pattern Antalgic,Decreased Stride Length,Decreased Feet Clearance Factors Limiting Gait Function Factors Limiting Gait Function Decreased Activity Tolerance, Decreased Strength,Pain,Poor Balance Comments Gait Comments please see mobility section. Stair Climbing Assessment Evaluation Level of Assist On Stairs Standby Assistance Devices Stair Climbing Assistive Devices Left Railing Technique/Endurance Stair Climbing Direction Ascend and Descend Stair Climbing Technique Step Over Step Number of Steps Climbed 3 Stair Climbing Set # Repetitions (reps) 2 Comments Stair Climbing Comments Pt able to climb stairs SBA. M5 PT-IP Objective Assessments Start: 12/05/19 15:04 Freq: NEEDED Status: Discharge Protocol: Document 12/05/19 17:58 AW (Rec: 12/05/19 18:17 AW [id number]) Orientation Orientation/Cognition Level of Alertness Alert Orientation Name,Month,Day of Week,Place, Situation Language Function Ability No Deficits Noted Safety Awareness Understands Safety Issues Memory Description No Deficits Noted Gross Range of Motion Lower Extremity ROM Assessment Within Functional Limits Strength Upper Extremity Strength Assessment Within Functional Limits Lower Extremity Strength Assessment Within Functional Limits Comments Strength Comments BUE grossly 4+/5 Coordination Assessment Gross Coordination Gross Coordination WNL Sensation Assessment Sensation Gross Sensation Left UE Impaired Light Touch Impaired Comments Sensation Comments Pt with dull light touch sensation LUE Muscle Tone Muscle Tone WNL Yes M6 PT-IP Treatment Start: 12/05/19 15:04 Freq: NEEDED Status: Discharge Protocol: Document 12/05/19 17:58 AW (Rec: 12/05/19 18:17 AW [id number]) Physical Therapy Treatment Education Education Provided Precautions,Weight Bearing Status,Post-Op Packet,Safety Brace Education [place],Patient Other Treatments Other Treatment Performed Provided education on role of PT, plan of care, post-op precautions, and soft collar for comfort. Pt was able to don and doff the soft collar independently. Also provided education and handout regarding safe swallow and potential voice changes following cervical surgery. M7 PT-IP Assessment and Plan Start: 12/05/19 15:04 Freq: NEEDED Status: Discharge Protocol: Document 12/06/19 09:47 [facility] (Rec: 12/06/19 12:46 [facility] [id number]) PT Summary Assessment and Plan Potential Rehabilitation Potential Good Status of Condition at Evaluation Evolving Summary Impairments Pain,ROM,Strength,Balance, Sensation,Bed Mobility, Transfers,Gait Assessment Summary Pt is independent for bed mobility and SBA for all other mobility. Pt is steady with gait w/o AD. Pt seems ready to d/c home with assist. Goals Bed Mobility Goal Independent Transfer Goal Independent Gait Goal Independent Gait Distance 200 Other Goals - up/down 3 steps with unilateral rail SBA Days to Meet Goals 2 Frequency of Treatment Frequency Of Treatment Twice a Day Treatment Plan Physical Therapy Treatment Plan Bed Mobility Training,Transfer Training,Gait Training, Therapeutic Exercise,Balance Retraining,Post Op Education, Discharge Planning,Hot or Cold Pack Recommendations To Nursing Amount of Assist Needed Standby Assistance Discharge Recommendations PT Discharge Recommendations Home with Assistance, Outpatient PT Transportation Needs at Discharge Private Vehicle
--- NOTE | 2019-12-06 12:14 | PC.NURSE ---
Addendum entered by Trista Sams R.N. 12/06/19 12:35: Pt left unit at 1235 via wheelchair in no distress with all belongings, LAY[employer] WORK[employer] escort. Pt's boyfriend at Hospital Main entrance to drive pt home. Original Note: Day Shift- Anterior neck dressing intact with approx quarter sized old dry drainage to distal end of dressing, marked with pen this AM, no change at 1210. Soft cervical collar in place. Pt reports 4-5/10 aching to anterior neck radiating to bilateral shoulders and down to collar bone area. PRN Vistaril given at 0738 with PRn Tylenol and Oxycodone PRN given at 1040 with good effect. Pt denies any issue with swallowing or eating breakfast. Discharge instructions summary packet reviewed with pt, pt has prescriptions for Vistaril and Oxycodone. States has all belongings. Has stool softeners already at home and has her [address] follow [address] Dr. Bender's office. No further voiced concerns. Pt's boyfriend will be coming to pick pt up for discharge around 1230.
--- NOTE | 2019-12-06 12:31 | CM.DANOTE ---
Intake and Output 12/05/19 12/06/19 12/06/19 23:59 07:59 15:59 Intake Total 1220 / 2860 1620 / 1620 Output Total 1250 / 2950 1800 / 2250 450 / 2250 Balance -30 / -90 -180 / -630 -450 / -630 Intake: IV 100 / 1200 1100 / 1100 Cefazolin 2 gm In 100 ml @ 200 100 / 100 100 / 100 mls/hr IV Q8H MARINO Rx#:[id number] Sodium Chloride 0.9% 1,000 ml @ 1000 / 1000 100 mls/hr IV CONT MARINO Rx#: [id number] Oral 1120 / 1660 520 / 520 Output: Urine 1250 / 2950 1800 / 2250 450 / 2250 Other: Percent Meal Consumed 75%
--- NOTE | 2019-12-06 12:31 | CM.DANOTE ---
DCP/Assessment: Reviewed chart. Patient is a 49yr old female admitted [facility] with [facility]. Patient underwent surgery with Dr. Bender on 12-05-19. PCP is Dr. Ames. Primary payor is 1)[employer] 2)Medicaid. Met with patient explained CM/SW role. Patient has orders to d/c home today. Patient reports that she has no anticipated d/c planning needs. Patient seen and cleared for home by therapies. Family to provide transport. P: Home today. PEDRO Gordon Discharge Planning/Care Management CM Discharge Assessment Start: 12/06/19 12:00 Freq: Status: Active Protocol: Document 12/06/19 12:00 KJS (Rec: 12/06/19 12:31 KJS [id number]) Discharge Planning Assessment Assigned Slide Forming Machine Tender PEDRO Gordon Contact Information Tomasa Del Cid (daughter) [phone] Advance Directives? No History Provided By Patient,Medical Record Prior Living Arrangements RV Household Members none Independent with ADL's Yes Is patient alert and oriented? Yes Caregiver for Another No Barriers to Discharge No Discharge Plan Home Transportation Arrangement Family to provide transportation. Referrals Initiated None needed Whiteboard Updated in Patient Room with Yes name and ext. # of Slide Forming Machine Tender Review Status In Process Next Review Type Continued Stay Review Pre-Anesthesia Assessment Start: 12/01/19 08:40 Freq: Status: Complete Protocol: Document 12/01/19 08:40 CAB (Rec: 12/01/19 08:46 CAB [id number]) Pre-Anesthesia Assessment PAC Comment Father has Malignant Hyperthermia. Reviewed with Dr. Partida and notified [facility] to change pt to first case Surgeon H&P not available at time of chart review. Patient Information Reviewed Via Chart Review Diagnostic Results BMP/CMP,CBC Comment Outside labs 08/20/19 scanned- COVID-19 screen not identified Primary Care Provider Jhon Ames Seen Specialist in Last 12 Months Yes Specialist Seen Youth Program Director,Orthopedist Primary Language [place] Waterfront Director Required No Height 162.56 cm Weight 94.801 kg Body Mass Index (BMI) 35.9 Hearing Ability Normal Visual Assist Glasses Dentition Type Partial- Upper Other Aids No Hx Anesthesia Reactions No Hx Family Anesthesia Reaction Yes: Father Malignant hyperthermia, pt has not been tested Hx Malignant Hyperthermia No Hx Blood Transfusions Yes: r/t delivery hemorrhage Hx Blood Transfusion Reaction No Anesthesia Review Requested Yes Endoscopic Technician No alcohol intake current alcohol intake frequency holidays/special occasions only Smoking Status Former smoker Tobacco type cigarettes how long ago did patient quit smoking Quit 2015, using Zyn pouch ( Nicotine pouch) under lip Substance Use Type marijuana Comment Advised not to smoke marijuana 24 hours prior to surgery Pain Present Pain Reported Musculoskeletal Symptoms Back Pain,Difficulty Walking, Joint Pain,Limited Range of Motion,Muscle Cramps,Muscle Spasms,Muscle Weakness,Neck Pain,Numbness,Radiating Pain into Limb,Tingling History of Falling (Recent or History of Yes ) Patient is completely paralyzed or No completely immobile Mental Status Oriented to own ability Is patient on oxygen? No Does patient have MARLEY/SOB Yes: r/t Asthma Hx Sleep Apnea No Currently Taking a Beta Moises No Can You Climb a Flight of Stairs Without No SOB Hx Chest Pain No Hx SOB Yes: r/t Asthma Hx Syncope or Dizziness No Anti-Coagulant Therapy No Has a Field Professional No Cardiac Testing No Hx Pacemaker/ICD No Pacemaker Rep Required? No Cardiac Clearance Received Not Applicable Diet Type At Home Regular dysphagia No Bladder Pattern Incontinent Urinary Catheter Present No Hx Urinary Self Catheterization No Diabetes No Patient No Lactating No Hx Drug Resistant Organism No Presence of External or Internal Medical No Devices Have you had any close contact with No someone diagnosed with COVID-19? Evaluation/Screening for possible COVID- Yes 19 infection completed? Marital Status Lives With none Prior Living Arrangements RV Support System Child/Children Does the Patient Have Assistance After Yes: Daughter can assist w/ Surgery care at [place] Patient Discharge Plan Description Return Home Comment Pt advised overnight length of stay per surgeon Feels Safe in Current Environment Yes Been Physically Hurt or Threatened By a No Person in Current Environment Do you have thoughts of harming yourself None or others? Are you currently considering suicide? No Do you have a plan to hurt yourself or No Plan others? Do You Have Any Spiritual Beliefs That No May Affect Your HC Choices? Do You Have Any Cultural Practices That No May Affect Your HC Choices? Comment Sundeep Who Can We Speak to About Patient's Care Family, friends Identifying Code for Release of Patient Declines to issue Information Health Care Proxy/Next of Kin Tomasa (daughter) Health Care Proxy Emergency Contact Name Tomasa (daughter) Emergency Contact Advance Directives? No Power of Forepart Reducer No PAC Instructions Durable medical equipment, Medications to take/avoid, Nasal antibiotic,No ETOH/ petroleum product on skin DOS, NPO,Post-op transportation,Pre -surgical wash,Sturdy shoes/ comfortable clothes,Do not bring valuables and remove jewelry
== END 2019-12-06 12:35 | disposition home or self-care (01) ==
LOC: OR 08:10 → AC 11:48 → ICU 11:50
PROVIDERS: PCP Family Medicine; Referring Provider Orthopaedic Surgery Orthopaedic Surgery of the Spine; Visit Provider Orthopaedic Surgery Orthopaedic Surgery of the Spine
PROC: (CPT 22551; principal; 2019-12-05 07:45)
DX: M48.02 Spinal stenosis, cervical region (principal); M47.22 Other spondylosis with radiculopathy, cervical region; M25.78 Osteophyte, vertebrae; I10 Essential (primary) hypertension; J45.909 Unspecified asthma, uncomplicated
CPT/HCPCS: 22551; 22552; 22853 ×2; 72040; 76000; 87797; 97116; 97161; 97165; 97535; C1776; J0690; J1100; J1170; J2405; J2704; J3010

== ENCOUNTER → 2020-09-03 12:56 | Outpatient (CLI) | payer MEDICARE, MEDICAID, SELFPAY ==
[2019-12-05 12:30] VITALS: BMI 35.2
--- NOTE | 2020-09-03 | DI.CT.S_ITS ---
PROCEDURE: CT CERVICAL SPINE WO CON INDICATIONS: Spondylosis without myelopathy or radiculopathy, c TECHNIQUE: Noncontrast 3 mm thick sections acquired from the skull base to the T4 level. Sagittal and coronal reformats were then constructed. For radiation dose reduction, the following was used: automated exposure control, adjustment of mA and/or kV according to patient size. COMPARISON: Located [facility], MR, MR CERVICAL SPINE WITHOUT CONTRAST, 06/18/2019, 12:31. FINDINGS: Image quality: Excellent. Bones: Patient is status post anterior fusion of lower cervical spine at C5 through C7 levels with intervertebral spacer placement at C5-6 and C6-7 levels. No gross hardware loosening or failure is seen. Straightening of normal cervical lordosis is noted. No fractures or dislocations. Visualized superior ribs are intact. C2-3: Unremarkable. C3-4: Mild degenerative endplate changes are seen. No significant disc bulge, canal stenosis or neural foraminal narrowing. C4-5: Mild degenerative endplate changes are seen. No significant canal stenosis or neural foraminal narrowing. C5-6: Bilateral uncinate hypertrophic changes are noted . No significant canal stenosis or neural foraminal narrowing. C6-7: Bilateral uncinate hypertrophic changes are seen. There is suggestion of left worse than right bilateral neural foraminal stenosis. No significant central canal stenosis. C7-T1: Unremarkable. Soft tissues: Prevertebral soft tissues are normal in thickness. No paravertebral hematomas. No apical pneumothoraces. IMPRESSION: 1. Post anterior fusion changes at C5 through C7 levels. Mild straightening of normal cervical lordosis. No acute compression fracture or spondylolisthesis. No gross hardware complication. 2. Mild degenerative disc disease at C3-4 and C4-5 levels. 3. Bilateral facet hypertrophic changes at C5-6 and C6-7 levels with suggestion of left worse than right bilateral neural foraminal narrowing at C6-7 level. Dictated by: Roberto Perales M.D. on 09/03/2020 at 14:14 Approved by: Roberto Perales M.D. on 09/03/2020 at 14:20
== END ==
PROVIDERS: PCP Family Medicine; Referring Provider Orthopaedic Surgery Orthopaedic Surgery of the Spine; Visit Provider Orthopaedic Surgery Orthopaedic Surgery of the Spine
DX: M47.812 Spondylosis without myelopathy or radiculopathy, cervical region (principal); Z98.1 Arthrodesis status
CPT/HCPCS: 72125

== ENCOUNTER → 2020-10-17 18:05 | Outpatient (CLI) | payer MEDICARE, MEDICAID, SELFPAY ==
[2019-12-05 12:30] VITALS: BMI 35.2
--- NOTE | 2020-10-17 | DI.MRI.S_ITS ---
PROCEDURE: MR THORACIC SPINE WO CON INDICATIONS: Spondylosis w/o myelopathy or radiculopathy TECHNIQUE: Noncontrast sagittal T1 spine echo and T2 fast spin echo, sagittal STIR, axial T1 and T2 fast spin echo through the thoracic spine. COMPARISON: [facility] [place], CR, XR CERVICAL SPINE 2 OR 3 VIEWS, 06/07/2020, 9:14. FINDINGS: Image quality: Excellent. Alignment and Curvature: There is normal bony alignment. Bone Marrow: Marrow is of normal overall signal except for metal artifact crossing the visualized low cervical spine associated with anterior fusion plate from C5 through C7.. No acute vertebral body compression fractures. Spinal Cord: Visualized spinal cord is normal in size and signal except for presence of anterior impingement by posterior disc bulging at T6-7 and a small focal posterior disc herniation contiguous with the disc annulus at T7-T8. At each of these 2 levels the abnormality is centered at and to the left of midline. The herniated disc impinging on the left T7-T8 level of the thoracic spine measures up to 4 mm in diameter. A slight disc bulge is present at the midline at T8-T9.. Paraspinous Soft Tissues: No paravertebral masses. Miscellaneous: On axial images, central canal and foramina appear widely patent at all scanned levels. IMPRESSION: No compression fracture is seen. No intrinsic lesion within the cervical cord is found. Metal artifact from C5 through C7 anterior fusion plate mildly degrades quality of visualization at the low cervical spine seen at the uppermost imaging on this study but does not affect the visualization from T1 inferiorly. Note is made of focal [id number] degenerative disc disease at T6-T7 and T7-T8 with a minimal degree of such degeneration at T8-T9. This degeneration at T6-T7 and T7-T8 is centered at and to the left of midline and impinges on the anterior aspect of the thoracic cord in that area. Myelomalacia does not result. The disc disease at T7-T8 is associated with a posterior small 3 by 4 mm maximal dimension cephalad-directed left paramedian disc herniation. Dictated by: Deon Rogers M.D. on 10/18/2020 at 10:48 Approved by: Deon Rogers M.D. on 10/18/2020 at 11:00
== END ==
PROVIDERS: PCP Family Medicine; Referring Provider Orthopaedic Surgery Orthopaedic Surgery of the Spine; Visit Provider Orthopaedic Surgery Orthopaedic Surgery of the Spine
DX: M47.814 Spondylosis without myelopathy or radiculopathy, thoracic region (principal); M51.34 Other intervertebral disc degeneration, thoracic region; Z98.1 Arthrodesis status
CPT/HCPCS: 72146

== ENCOUNTER → 2022-05-09 11:32 | Outpatient (CLI) | payer MEDICARE, MEDICAID, SELFPAY ==
[2019-12-05 12:30] VITALS: BMI 35.2
--- NOTE | 2022-05-09 11:34 | DI.MRI.S_ITS ---
PROCEDURE: MR LUMBAR SPINE WO CON INDICATIONS: Radiculopathy, cervical region lumbar region TECHNIQUE: Noncontrast sagittal T1 spin echo and T2 fast echo, sagittal STIR, and T2 fast spin echo through the lumbar spine. In cases with scoliosis, additional coronal T2 fast spin echo may be performed. COMPARISON: [facility], MR, MR CERVICAL SPINE WO CON, 05/09/2022, 12:27. [facility], RF, LUMBAR SPINE INTERIAMINAR, 05/07/2021, 15:23. [facility], MR, MR THORACIC SPINE WO CON, 10/17/2020, 18:18. [facility], MR, MR LUMBAR SPINE WITH/WITHOUT CONTRAST, 10/01/2018, 8:58. FINDINGS: Image quality: There is artifact associated with the metallic hardware. Alignment and Curvature: There is normal bony alignment. Bone Marrow: Marrow is of normal overall signal. No acute vertebral body compression fractures. Spinal Cord: Conus medullaris terminates at the L1 level. Visualized cord demonstrates normal signal and size. Paraspinous Soft Tissues: No paravertebral masses. T12-L1: Normal appearance. L1-L2: No significant abnormality is seen. L2-L3: The disc height and disc signal are relatively well preserved. Mild generalized disc bulge is seen. Mild facet joint hypertrophy is seen. There is moderate left-sided and no significant right-sided neural foraminal narrowing. Mild central canal narrowing is seen. When comparison is made with the prior images, these findings are similar. L3-L4: The disc height and disc signal are relatively well preserved. Moderate disc bulge is seen, which is eccentric to the left. There is a mild subarticular/foraminal left disc protrusion. Moderate facet joint hypertrophy is seen. There is moderate left-sided and mild right-sided neural foraminal narrowing. Moderate central canal narrowing is seen. When comparison is made with the prior images, these findings are similar. L4-L5: Postoperative changes are seen at this level, with bilateral pedicle screws and vertical fixation rods. There is a disc spacer seen. There has been removal of portions of the posterior elements. There is mild right-sided and no significant left-sided neural foraminal narrowing. No central canal narrowing can be seen. When comparison is made with the prior images, these findings are similar. L5-S1: The disc height is well-preserved. Loss of disc signal is seen at this level. Mild generalized disc bulge is seen. Moderate facet joint hypertrophy is seen. There is [id number]-dp-ikmglbca bilateral neural foraminal narrowing. Mild central canal narrowing is seen. No significant change from the prior. IMPRESSION: Multiple levels of lumbar spine degenerative change are seen, which are similar to 2019. Focal L4-L5 postoperative hardware. Dictated by: Efrain Perea M.D. on 05/09/2022 at 13:03 Approved by: Efrain Perea M.D. on 05/09/2022 at 13:08
--- NOTE | 2022-05-09 11:34 | DI.MRI.S_ITS ---
PROCEDURE: MR CERVICAL SPINE WO CON INDICATIONS: Radiculopathy, cervical region lumbar region TECHNIQUE: Noncontrast sagittal T1 spin echo and T2 fast spin echo, sagittal STIR, foraminal oblique sagittal T2 fast spin echo, and axial gradient echo or T2 fast spin echo through the cervical spine. COMPARISON: [facility], CT, CT CERVICAL SPINE WO CON, 09/03/2020, 13:11. [facility], MR, MR CERVICAL SPINE WITHOUT CONTRAST, 06/18/2019, 12:31. [facility], MR, MR LUMBAR SPINE WO CON, 05/09/2022, 12:27. [facility], RF, CERVICAL SPINE INTERLAMINAR, 01/08/2022, 10:14. FINDINGS: Image quality: This examination is limited by involuntary motion artifact. There is artifact associated with the metallic hardware. Alignment and Curvature: There is overall straightening of the normal cervical lordosis. No focal AP alignment abnormality is seen. Bone Marrow: Marrow demonstrates normal overall signal. Spinal Cord: Visualized spinal cord has normal size and signal. No cerebellar tonsillar herniation. Paraspinous Soft Tissues: No paravertebral masses. Prevertebral soft tissues are normal in thickness. Anterior fixation hardware is seen C5 through C7. Disc spacers are seen within the fused region. C2-C3: Normal appearance. C3-C4: Mild loss of disc height is seen. Loss of disc signal is seen. Moderate generalized disc osteophyte complex is seen. Moderate facet joint hypertrophy is seen. There is at least moderate right-sided and moderate left-sided neural foraminal narrowing. No significant central canal narrowing is seen. When comparison is made with the prior images, these findings are similar. C4-C5: Mild loss of disc height is seen. Loss of disc signal is seen. A mild degree of generalized disc osteophyte complex is seen. Moderate facet joint hypertrophy is seen. Moderate to severe bilateral neural foraminal narrowing can be seen. Mild central canal narrowing is seen. The degrees of neural foraminal narrowing are slightly progressed compared to the prior. C5-C6: Moderate generalized disc osteophyte complex is seen. Moderate facet joint hypertrophy is seen. There is at least moderate bilateral neural foraminal narrowing seen. No significant central canal narrowing is seen. The degree of central canal narrowing is clearly improved compared to the preoperative MRI. C6-C7: Moderate generalized disc osteophyte complex is seen. Is there is a mild central disc osteophyte protrusion. Moderate facet joint hypertrophy is seen. There is moderate right-sided and moderate to severe left-sided neural foraminal narrowing. Minimal central canal narrowing is seen. The degree of central canal narrowing is clearly improved compared to the prior MRI. C7-T1: The disc height and disc signal are relatively well preserved. A mild degree of generalized disc osteophyte complex is seen. No significant neural foraminal or central canal narrowing can be seen. IMPRESSION: Since the prior MRI, there has been interval placement of anterior fixation hardware C5 through C7. The degrees of central canal narrowing are clearly improved at C5-C6 and C6-C7 since the preoperative MRI. Mild progression of the degree of neural foraminal narrowing at C4-C5 compared to the 2019 MRI. Dictated by: Efrain Perea M.D. on 05/09/2022 at 13:09 Approved by: Efrain Perea M.D. on 05/09/2022 at 13:16
== END ==
PROVIDERS: PCP Family Medicine; Referring Provider Physical Medicine & Rehabilitation; Visit Provider Physical Medicine & Rehabilitation
DX: M47.27 Other spondylosis with radiculopathy, lumbosacral region (principal); M47.26 Other spondylosis with radiculopathy, lumbar region; M54.12 Radiculopathy, cervical region; M48.02 Spinal stenosis, cervical region; Z98.1 Arthrodesis status
CPT/HCPCS: 72141; 72148

== ENCOUNTER 2022-09-09 19:35 | Emergency (ER) | payer MEDICARE, MEDICAID, SELFPAY ==
[2019-12-05 12:30] VITALS: BMI 35.2
[2022-09-09 19:55] VITALS: BP 157/87; PULSE 73; RESP 18; TEMP 36.6; O2SAT 100; BMI 31.7
== END 2022-09-09 22:08 | disposition left against medical advice (07) ==
PROVIDERS: Emergency Provider Emergency Medicine; PCP Family Medicine
CPT/HCPCS: 99281